=== PATIENT | female | born 1970 | race Hispanic/Latino ===

== ENCOUNTER 2018-04-15 05:04 | Emergency (ER) | payer OTHER ==
[2018-04-15] MEDS ORDERED: METHYLPREDNISOLONE SOD SUCC 125MG/2ML VIAL ONE (05:26)
[2018-04-15] MEDS ORDERED: IPRATROPIUM/ALBUTEROL SULFATE 3 ML SOLUTION IH ONE (05:31)
== END 2018-04-15 06:14 | disposition home or self-care (01) ==
LOC: EDH 05:04
DX: R06.2 Wheezing (principal); R50.9 Fever, unspecified; I10 Essential (primary) hypertension; Z88.8 Allergy status to other drugs, medicaments and biological substances; Z90.49 Acquired absence of other specified parts of digestive tract; Z90.710 Acquired absence of both cervix and uterus
CPT/HCPCS: 94640; 96374; 99284; J2930

== ENCOUNTER 2018-05-15 19:43 | Emergency (ER) | payer OTHER ==
[2018-05-15 20:16] LABS: BASOPHILS % (AUTO) 0.6 % (0.0-5.0); EOSINOPHILS % (AUTO) 1.4 % (0.0-8.0); HEMATOCRIT 36.8 % (36-48); MEAN CORPUSCULAR HEMOGLOBIN 25.6 pg (27.0-33.0); MEAN CORPUSCULAR HGB CONC 32.5 g/dL (32.0-36.0); MEAN CORPUSCULAR VOLUME 78.7 fL (79-99); MONOCYTES % (AUTO) 6.7 % (3.0-13.0); NEUTROPHILS % (AUTO) 63.3 % (40.0-77.0); PLATELET COUNT (AUTO) 248 K/uL (130-400); RED BLOOD CELL COUNT(AUTO) 4.68 MIL/uL (4.00-5.50); RED CELL DISTRIBUTION WIDTH 17.1 % (11.0-15.5); WHITE BLOOD COUNT (AUTO) 6.3 K/uL (4.8-10.8)
[2018-05-15] MEDS ORDERED: ONDANSETRON HCL 4 MG/2 ML VIAL ONE (20:19)
[2018-05-15] MEDS ORDERED: MORPHINE SULFATE 4 MG/1ML SYG ONE (20:20)
[2018-05-15 20:27] LABS: APPEARANCE,URINE Clear (CLEAR); BILIRUBIN,URINE Negative (NEGATIVE); COLOR,URINE Yellow (YELLOW); GLUCOSE, URINE (UA) Negative (NEGATIVE); KETONES,URINE Trace mg/dL (NEGATIVE); LEUKOCYTE ESTERASE ,URINE Negative (NEGATIVE); NITRATE,URINE Negative (NEGATIVE); OCCULT BLOOD,URINE Negative (NEGATIVE); PROTEIN,URINE Trace (NEGATIVE)
[2018-05-15 20:29] LABS: CARBON DIOXIDE 30 mmol/L (21-32); CHLORIDE 102 mmol/L (101-111); CREATININE 0.9 mg/dL (0.5-1.5); GLOMERULAR FILTR. RATE CALC 72 mL/min (>60); GLUCOSE,RANDOM 97 mg/dL (70-105); POTASSIUM 3.4 mmol/L (3.5-5.1); SODIUM SERUM 141 mmol/L (136-145); UREA NITROGEN, BLOOD 13 mg/dL (7-18)
[2018-05-15 20:33] LABS: INR 0.95 (0.85-1.15); PARTIAL THROMBOPLASTIN TIME 27.9 SEC (26.3-35.5)
[2018-05-15 20:37] LABS: BACTERIA,URINE Few /HPF (None Seen); RBC,URINE None Seen /HPF (0-1)
[2018-05-15 20:38] LABS: WBC,URINE 0-1 /HPF (0-1)
[2018-05-15 20:44] LABS: ALANINE AMINOTRANSFERASE 27 U/L (12-78); ALBUMIN 3.6 g/dL (3.5-5.0); ASPARTATE AMINOTRANSFERASE 22 U/L (10-37); BILIRUBIN,TOTAL 0.4 mg/dL (0.2-1.0); CREATINE KINASE MB < 0.5 ng/mL (0.5-3.6); CREATINE KINASE, TOTAL 59 U/L (21-232); MYOGLOBIN 41 ng/mL (10-92); TOTAL PROTEIN, SERUM 7.7 g/dL (6.0-8.3); TROPONIN I < 0.04 ng/mL (0.00-0.06)
[2018-05-15] MEDS ORDERED: CLINDAMYCIN 900 MG/D5% WATER 50 ML IV ONE (21:33)
[2018-05-15] MEDS ORDERED: FUROSEMIDE 10 MG/ML 2ML VIAL ONE (22:09)
[2018-05-15] MEDS ORDERED: POTASSIUM CHLORIDE 20 MEQ ERTAB PO ONE (22:09)
[2018-05-15] MEDS ORDERED: FUROSEMIDE 10 MG/ML 4ML VIAL ONE (22:09)
== END 2018-05-15 22:42 | disposition home or self-care (01) ==
LOC: EDH 19:43
DX: L03.116 Cellulitis of left lower limb (principal); R60.0 Localized edema; R50.9 Fever, unspecified; I10 Essential (primary) hypertension; Z88.6 Allergy status to analgesic agent; Z88.1 Allergy status to other antibiotic agents; Z90.49 Acquired absence of other specified parts of digestive tract; Z90.710 Acquired absence of both cervix and uterus; Z98.890 Other specified postprocedural states
CPT/HCPCS: 36415; 71045; 80053; 81001; 82550; 82553; 83605; 83874; 84484; 85025; 85610; 85730; 87040 ×2; 87088; 93005; 93970; 96365; 96374; 96375; 99285; J1940 ×2; J2270; J2405; J3490

== ENCOUNTER 2018-08-10 17:29 | Observation (INO) | payer OTHER ==
[~2018-08-10] VITALS: Ht 170.2 cm; Wt 169.1 kg
[~2018-08-10 17:29] MED LIST: DIAZ10TA4 PO; FURO-151 PO; METO5TAB7 PO
[2018-08-10] MEDS ORDERED: SODIUM CHLORIDE 0.9% 500ML 500 ML IV ONE (18:59)
[2018-08-10] MEDS ORDERED: MORPHINE SULFATE 4 MG/1ML SYG ONE (18:59)
[2018-08-10] MEDS ORDERED: ZOSYN 3.375GM+NS 50ML 50 ML IV ONE (18:59)
[2018-08-10] MEDS ORDERED: ONDANSETRON HCL 4 MG/2 ML VIAL ONE (19:00)
[2018-08-10] MEDS ORDERED: SODIUM CHLORIDE 0.9% 100 ML IV ONE (19:00)
[2018-08-10 19:01] LABS: BASOPHILS % (AUTO) 0.9 % (0.0-5.0); EOSINOPHILS % (AUTO) 2.1 % (0.0-8.0); HEMATOCRIT 34.7 % (36-48); LYMPHOCYTES % (AUTO) 25.4 % (21.0-51.0); MEAN CORPUSCULAR HEMOGLOBIN 26.4 pg (27.0-33.0); MEAN CORPUSCULAR HGB CONC 33.2 g/dL (32.0-36.0); MEAN CORPUSCULAR VOLUME 79.6 fL (79-99); MONOCYTES % (AUTO) 5.9 % (3.0-13.0); NEUTROPHILS % (AUTO) 65.7 % (40.0-77.0); NUCLEATED RED BLOOD CELLS 0.1 % (0.0-0.19); PLATELET COUNT (AUTO) 220 K/uL (130-400); RED BLOOD CELL COUNT(AUTO) 4.36 MIL/uL (4.00-5.50); WHITE BLOOD COUNT (AUTO) 4.2 K/uL (4.8-10.8)
[2018-08-10] MEDS ORDERED: SODIUM CHLORIDE 0.9% 10 ML VIAL IVP PRN (19:15)
[2018-08-10] MEDS ORDERED: VANCOMYCIN PROTOCOL PER PHARMACY IV SCH (19:15)
[2018-08-10 19:17] LABS: ALBUMIN 3.2 g/dL (3.5-5.0); BILIRUBIN,TOTAL 0.4 mg/dL (0.2-1.0); CREATININE 0.9 mg/dL (0.5-1.5); TOTAL PROTEIN, SERUM 7.3 g/dL (6.0-8.3)
[2018-08-10] MEDS ORDERED: ACETAMINOPHEN 325 MG TAB PO PRN (19:30)
[2018-08-10 20:11] LABS: ERYTHROCYTE SEDIMENTATION RATE 53 MM/HR (0-20)
[2018-08-10] MEDS: VANCOMYCIN 1.75 GM in SODIUM CHLORIDE 0.9% 250 ML IV SCH (21:05)
[2018-08-10] MEDS ORDERED: COMPOUND IV REFRIGERATED 1 EACH IVSOLN MISC PRN (21:15)
[2018-08-10] MEDS ORDERED: ACETAMINOPHEN 325 MG TAB ONE (23:05)
[2018-08-11 00:55] VITALS: BP 139/76
[2018-08-11] MEDS ORDERED: FEXO-59 PO (01:46)
[2018-08-11] MEDS ORDERED: FISH1CAP27 PO (01:46)
[2018-08-11] MEDS ORDERED: POTA10TA11 PO (01:46)
[2018-08-11] MEDS ORDERED: MAG1CAPS5 PO (01:46)
[2018-08-11 03:44] LABS: HEMATOCRIT 33.6 % (36-48); MEAN CORPUSCULAR HEMOGLOBIN 26.2 pg (27.0-33.0); MEAN CORPUSCULAR HGB CONC 32.9 g/dL (32.0-36.0); MEAN CORPUSCULAR VOLUME 79.5 fL (79-99); PLATELET COUNT (AUTO) 191 K/uL (130-400); RED BLOOD CELL COUNT(AUTO) 4.23 MIL/uL (4.00-5.50); RED CELL DISTRIBUTION WIDTH 16.9 % (11.0-15.5); WHITE BLOOD COUNT (AUTO) 4.2 K/uL (4.8-10.8)
[2018-08-11 04:02] LABS: BILIRUBIN,TOTAL 0.5 mg/dL (0.2-1.0)
[2018-08-11 04:15] VITALS: BP 126/69
[2018-08-11] MEDS ORDERED: POTASSIUM CHLORIDE 10% ELIXIR 20 MEQ/15 ML UDCUP PO PRN (05:45)
[2018-08-11] MEDS ORDERED: LIDOCAINE HCL-MPF 1% 2ML VIAL IVP PRN (05:45)
[2018-08-11] MEDS ORDERED: POTASSIUM CHLORIDE 20MEQ/100ML 100 ML IV PRN (05:45)
[2018-08-11] MEDS: POTASSIUM CHLORIDE 20 MEQ ERTAB PO PRN ×3 (06:28→17:19)
[2018-08-11] MEDS ORDERED: DIAZEPAM 5 MG TABLET PO PRN (06:30)
[2018-08-11] MEDS ORDERED: HYDROMORPHONE 1 MG/1 ML AMP IVP PRN (06:30)
[2018-08-11 07:45] VITALS: BP 127/78
[2018-08-11] MEDS: MAGNESIUM PO SCH ×2 (08:00→17:00)
[2018-08-11] MEDS: CHOLECALCIFEROL PO SCH ×2 (08:00→17:00)
[2018-08-11] MEDS: POTASSIUM CHLORIDE 20 MEQ ERTAB PO SCH (09:15)
[2018-08-11] MEDS: FUROSEMIDE 40 MG TABLET PO SCH ×2 (09:15→20:06)
[2018-08-11] MEDS: METOLAZONE 2.5 MG TABLET PO SCH (09:15)
[2018-08-11] MEDS: CETIRIZINE HCL 5 MG TABLET PO SCH (09:15)
[2018-08-11] MEDS: ENOXAPARIN SODIUM 40 MG/0.4 ML SYRINGE SQ SCH (09:17)
[2018-08-11] MEDS: LIDOCAINE HCL 5% OINT 36GM TUBE TP SCH ×4 (09:47→21:00)
[2018-08-11] MEDS: VANCOMYCIN 1.75 GM in SODIUM CHLORIDE 0.9% 250 ML IV SCH ×2 (10:16→20:06)
[2018-08-11] MEDS ORDERED: HYDROMORPHONE HCL 2 MG/ML VIAL IVP PRN (10:45)
[2018-08-11] MEDS ORDERED: HYDROMORPHONE 1 MG/1 ML AMP ONE (10:55)
[2018-08-11 12:11] VITALS: BP 132/68
[2018-08-11] MEDS: ZOSYN 3.375GM+NS 50ML 50 ML IV SCH (17:00)
[2018-08-11 17:15] VITALS: BP 116/80
[2018-08-11] MEDS ORDERED: ZOSYN 3.375GM+NS 50ML 50 ML IV SCH (19:00)
[2018-08-11] MEDS: HYDROMORPHONE 1 MG/1 ML AMP IVP PRN (20:07)
[2018-08-11 20:08] VITALS: BP 119/73
[2018-08-12 00:12] VITALS: BP 123/72
[2018-08-12] MEDS: ZOSYN 3.375GM+NS 50ML 50 ML IV SCH ×2 (00:21→08:36)
[2018-08-12] MEDS: HYDROMORPHONE 1 MG/1 ML AMP IVP PRN ×2 (04:03→11:06)
[2018-08-12 04:12] VITALS: BP 132/81
[2018-08-12 07:41] VITALS: BP 127/75
[2018-08-12] MEDS: CHOLECALCIFEROL PO SCH (08:00)
[2018-08-12] MEDS: MAGNESIUM PO SCH (08:00)
[2018-08-12] MEDS: METOLAZONE 2.5 MG TABLET PO SCH (08:32)
[2018-08-12] MEDS: POTASSIUM CHLORIDE 20 MEQ ERTAB PO SCH (08:33)
[2018-08-12] MEDS: CETIRIZINE HCL 5 MG TABLET PO SCH (08:33)
[2018-08-12] MEDS: FUROSEMIDE 40 MG TABLET PO SCH (08:34)
[2018-08-12] MEDS: LIDOCAINE HCL 5% OINT 36GM TUBE TP SCH ×2 (08:34→12:49)
[2018-08-12] MEDS: ENOXAPARIN SODIUM 40 MG/0.4 ML SYRINGE SQ SCH (08:34)
[2018-08-12] MEDS: VANCOMYCIN 1.75 GM in SODIUM CHLORIDE 0.9% 250 ML IV SCH (08:35)
[2018-08-12] MEDS ORDERED: CEPH500C2 PO (12:02)
[2018-08-12 12:19] VITALS: BP 135/88
== END 2018-08-12 15:10 | disposition home or self-care (01) ==
LOC: EDH 17:29 → EDHIP 18:48 → 3AH 08-11 00:29
PROVIDERS: ADMIT Internal Medicine; ATTEND Internal Medicine
DX: L03.116 Cellulitis of left lower limb (principal); E66.01 Morbid (severe) obesity due to excess calories; E11.9 Type 2 diabetes mellitus without complications; E78.5 Hyperlipidemia, unspecified; G47.30 Sleep apnea, unspecified; I10 Essential (primary) hypertension; I89.0 Lymphedema, not elsewhere classified; J44.9 Chronic obstructive pulmonary disease, unspecified; Z23 Encounter for immunization
CPT/HCPCS: 36415 ×2; 80053 ×2; 83605; 85025; 85027; 85651; 87040 ×2; 96365; 96366 ×2; 96372 ×2; 96375 ×2; 96376 ×2; 99285; G0008; G0378 ×44; J1170 ×5; J1650 ×2; J2270; J2405; J2543 ×4; J3370 ×2; J7030 ×2; J7040; Q2038

== ENCOUNTER 2018-08-20 13:47 | Inpatient (IN) | payer OTHER ==
[~2018-08-20] VITALS: Ht 170.2 cm; Wt 165.3 kg
[~2018-08-20 13:47] MED LIST changes: +FEXO-59 PO; +FISH1CAP27 PO; +MAG1CAPS5 PO; +POTA10TA11 PO
[2018-08-20] MEDS ORDERED: ONDANSETRON ODT 4 MG TAB ONE (14:27)
[2018-08-20] MEDS ORDERED: HYDROMORPHONE 1 MG/1 ML AMP ONE ×2 (14:27→21:57)
[2018-08-20 14:32] LABS: EOSINOPHILS % (AUTO) 1.1 % (0.0-8.0); HEMATOCRIT 36.4 % (36-48); LYMPHOCYTES % (AUTO) 25.9 % (21.0-51.0); MEAN CORPUSCULAR HEMOGLOBIN 26.4 pg (27.0-33.0); MONOCYTES % (AUTO) 6.5 % (3.0-13.0); NEUTROPHILS % (AUTO) 65.5 % (40.0-77.0); PLATELET COUNT (AUTO) 215 K/uL (130-400); RED BLOOD CELL COUNT(AUTO) 4.55 MIL/uL (4.00-5.50); WHITE BLOOD COUNT (AUTO) 4.7 K/uL (4.8-10.8)
[2018-08-20 14:50] LABS: ALBUMIN 3.3 g/dL (3.5-5.0); BILIRUBIN,TOTAL 0.4 mg/dL (0.2-1.0); CREATININE 0.9 mg/dL (0.5-1.5); TOTAL PROTEIN, SERUM 7.7 g/dL (6.0-8.3)
[2018-08-20 14:53] LABS: POTASSIUM 2.7 mmol/L (3.5-5.1)
[2018-08-20] MEDS ORDERED: POTASSIUM BICARB/CIT AC 25 MEQ TABLET.EFF ONE (15:50)
[2018-08-20] MEDS ORDERED: VANCOMYCIN 1GM+NS 250ML 250 ML IV ONE (16:05)
[2018-08-20] MEDS ORDERED: ZOSYN 3.375GM+NS 50ML 50 ML IV ONE (20:46)
[2018-08-20] MEDS ORDERED: HYDROCODONE/ACETAMINOPHEN 5/325 MG TAB ONE (20:46)
[2018-08-20] MEDS ORDERED: SODIUM CHLORIDE 0.9% 50 ML IV ONE (20:47)
[2018-08-20 22:20] VITALS: BP 145/90
[2018-08-21] VITALS: BP 149/77
[2018-08-21] MEDS: HYDROMORPHONE 1 MG/1 ML AMP IVP PRN ×5 (02:39→23:17)
[2018-08-21 04:00] VITALS: BP 136/92
[2018-08-21] MEDS ORDERED: HYDROCODONE/ACETAMINOPHEN 5/325 MG TAB PO PRN (05:45)
[2018-08-21] MEDS ORDERED: GLUCAGON 1MG KIT 1 MG ML IM PRN (05:45)
[2018-08-21] MEDS ORDERED: PHARMACY COMMUNICATION MISC SCH (05:45)
[2018-08-21] MEDS ORDERED: DEXTROSE 50%-WATER 50 ML DISP.SYRIN IV PRN (05:45)
[2018-08-21] MEDS ORDERED: VANCOMYCIN PROTOCOL PER PHARMACY IV SCH (05:45)
[2018-08-21] MEDS: INSULIN R PO SS1 SQ SCH ×4 (06:42→20:57)
[2018-08-21] MEDS ORDERED: VANCOMYCIN 1.75 GM in SODIUM CHLORIDE 0.9% 250 ML IV SCH (07:15)
[2018-08-21] MEDS ORDERED: COMPOUND IV REFRIGERATED 1 EACH IVSOLN MISC PRN (07:15)
[2018-08-21 08:00] VITALS: BP 142/93
[2018-08-21] MEDS: D3 PO SCH ×2 (08:00→08:56)
[2018-08-21] MEDS: MAG OXIDE PO SCH ×2 (08:00→08:56)
[2018-08-21] MEDS: TURMERIC RT XT PO SCH ×2 (08:00→08:56)
[2018-08-21] MEDS: FEXOFENADINE HCL 180 MG PO SCH (08:10)
[2018-08-21] MEDS: FUROSEMIDE 40 MG TABLET PO SCH ×2 (09:40→21:03)
[2018-08-21] MEDS: METOLAZONE 2.5 MG TABLET PO SCH (09:40)
[2018-08-21] MEDS: POTASSIUM CHLORIDE 20 MEQ ERTAB PO SCH (09:41)
[2018-08-21] MEDS: ENOXAPARIN SODIUM 40 MG/0.4 ML SYRINGE SQ SCH (09:41)
[2018-08-21 11:00] VITALS: BP 140/87
[2018-08-21] MEDS: CEFAZOLIN SODIUM 1 GM VIAL IVP SCH ×2 (12:03→21:09)
[2018-08-21] MEDS: VANCOMYCIN 1.25 GM in SODIUM CHLORIDE 0.9% 250 ML IV SCH ×2 (12:45→22:41)
[2018-08-21 16:00] VITALS: BP 155/86
[2018-08-21 20:00] VITALS: BP 150/88
[2018-08-21] MEDS ORDERED: LIDOCAINE HCL-MPF 1% 2ML VIAL IVP PRN ×2 (20:00)
[2018-08-21] MEDS ORDERED: POTASSIUM CHLORIDE 10% ELIXIR 20 MEQ/15 ML UDCUP PO PRN (20:00)
[2018-08-21] MEDS ORDERED: POTASSIUM CHLORIDE 20MEQ/100ML 100 ML IV PRN ×2 (20:00)
[2018-08-21] MEDS: POTASSIUM CHLORIDE 20 MEQ ERTAB PO PRN ×3 (21:16→23:17)
[2018-08-22] VITALS (7 sets, daily range): BP systolic 112–158; BP diastolic 58–86
[2018-08-22] MEDS: DIAZEPAM 5 MG TABLET PO PRN (00:55)
[2018-08-22] MEDS: CEFAZOLIN SODIUM 1 GM VIAL IVP SCH ×3 (04:08→21:10)
[2018-08-22] MEDS: HYDROMORPHONE 1 MG/1 ML AMP IVP PRN ×4 (04:12→21:18)
[2018-08-22 04:18] LABS: HEMATOCRIT 34.3 % (36-48); MEAN CORPUSCULAR HEMOGLOBIN 26.6 pg (27.0-33.0); MEAN CORPUSCULAR HGB CONC 33.7 g/dL (32.0-36.0); MEAN CORPUSCULAR VOLUME 78.8 fL (79-99); PLATELET COUNT (AUTO) 215 K/uL (130-400); RED BLOOD CELL COUNT(AUTO) 4.35 MIL/uL (4.00-5.50); WHITE BLOOD COUNT (AUTO) 4.5 K/uL (4.8-10.8)
[2018-08-22 04:35] LABS: CREATININE 1.1 mg/dL (0.5-1.5); MAGNESIUM 1.8 mg/dL (1.80-2.40); POTASSIUM 3.4 mmol/L (3.5-5.1)
[2018-08-22] MEDS: INSULIN R PO SS1 SQ SCH (06:39)
[2018-08-22] MEDS: POTASSIUM CHLORIDE 20 MEQ ERTAB PO PRN (06:41)
[2018-08-22] MEDS: VANCOMYCIN 1.25 GM in SODIUM CHLORIDE 0.9% 250 ML IV SCH ×2 (06:42→15:00)
[2018-08-22] MEDS: D3 PO SCH ×2 (08:00→09:47)
[2018-08-22] MEDS: MAG OXIDE PO SCH ×2 (08:00→09:47)
[2018-08-22] MEDS: TURMERIC RT XT PO SCH ×2 (08:00→09:47)
[2018-08-22] MEDS: FEXOFENADINE HCL 180 MG PO SCH (08:28)
[2018-08-22] MEDS: FUROSEMIDE 40 MG TABLET PO SCH ×2 (09:45→21:10)
[2018-08-22] MEDS: ENOXAPARIN SODIUM 40 MG/0.4 ML SYRINGE SQ SCH (09:45)
[2018-08-22] MEDS: POTASSIUM CHLORIDE 20 MEQ ERTAB PO SCH (09:46)
[2018-08-22] MEDS: METOLAZONE 2.5 MG TABLET PO SCH (09:50)
[2018-08-23] MEDS: HYDROMORPHONE 1 MG/1 ML AMP IVP PRN ×2 (03:20→09:02)
[2018-08-23 04:00] VITALS: BP 104/61
[2018-08-23] MEDS: CEFAZOLIN SODIUM 1 GM VIAL IVP SCH ×3 (05:55→21:52)
[2018-08-23] MEDS: VANCOMYCIN 1GM+NS 250ML 250 ML IV SCH ×3 (05:56→21:53)
[2018-08-23] MEDS: HYDROCODONE/ACETAMINOPHEN 5/325 MG TAB PO PRN ×3 (06:16→16:22)
[2018-08-23 08:00] VITALS: BP 119/75
[2018-08-23] MEDS: MAG OXIDE PO SCH ×2 (08:00→14:47)
[2018-08-23] MEDS: TURMERIC RT XT PO SCH ×2 (08:00→14:47)
[2018-08-23] MEDS: D3 PO SCH ×2 (08:00→14:47)
[2018-08-23] MEDS: FEXOFENADINE HCL 180 MG PO SCH (08:31)
[2018-08-23] MEDS: METOLAZONE 2.5 MG TABLET PO SCH (09:01)
[2018-08-23] MEDS: FUROSEMIDE 40 MG TABLET PO SCH ×2 (09:01→21:52)
[2018-08-23] MEDS: POTASSIUM CHLORIDE 20 MEQ ERTAB PO SCH (09:01)
[2018-08-23] MEDS: ENOXAPARIN SODIUM 40 MG/0.4 ML SYRINGE SQ SCH (09:04)
[2018-08-23 11:00] VITALS: BP 131/74
[2018-08-23] MEDS ORDERED: HYDROMORPHONE 1 MG/1 ML AMP IVP PRN (11:00)
[2018-08-23 16:00] VITALS: BP 121/86
[2018-08-23 19:47] VITALS: BP 97/67
[2018-08-23 23:53] VITALS: BP 134/78
[2018-08-24] MEDS: DIAZEPAM 5 MG TABLET PO PRN ×2 (00:41→13:15)
[2018-08-24 05:11] VITALS: BP 139/90
[2018-08-24] MEDS: VANCOMYCIN 1GM+NS 250ML 250 ML IV SCH (05:38)
[2018-08-24] MEDS: CEFAZOLIN SODIUM 1 GM VIAL IVP SCH ×3 (05:38→20:06)
[2018-08-24] MEDS: HYDROCODONE/ACETAMINOPHEN 5/325 MG TAB PO PRN ×4 (05:56→20:09)
[2018-08-24] MEDS: D3 PO SCH ×2 (08:00→17:00)
[2018-08-24] MEDS: MAG OXIDE PO SCH ×2 (08:00→17:00)
[2018-08-24] MEDS: TURMERIC RT XT PO SCH ×2 (08:00→17:00)
[2018-08-24 08:09] VITALS: BP 143/76
[2018-08-24] MEDS: FEXOFENADINE HCL 180 MG PO SCH (09:00)
[2018-08-24] MEDS: POTASSIUM CHLORIDE 20 MEQ ERTAB PO SCH (09:32)
[2018-08-24] MEDS: METOLAZONE 2.5 MG TABLET PO SCH (09:32)
[2018-08-24] MEDS: ENOXAPARIN SODIUM 40 MG/0.4 ML SYRINGE SQ SCH (09:33)
[2018-08-24] MEDS: FUROSEMIDE 40 MG TABLET PO SCH ×2 (09:33→20:06)
[2018-08-24 11:42] VITALS: BP 145/97
[2018-08-24] MEDS ORDERED: COMPOUND IV REFRIGERATED 1 EACH IVSOLN MISC PRN (14:30)
[2018-08-24] MEDS: VANCOMYCIN 1.25 GM in SODIUM CHLORIDE 0.9% 250 ML IV SCH (15:52)
[2018-08-24 16:01] VITALS: BP 126/79
[2018-08-24 20:28] VITALS: BP 137/67
[2018-08-25 00:24] VITALS: BP 127/76
[2018-08-25] MEDS: VANCOMYCIN 1.25 GM in SODIUM CHLORIDE 0.9% 250 ML IV SCH (02:58)
[2018-08-25] MEDS: CEFAZOLIN SODIUM 1 GM VIAL IVP SCH ×2 (04:00→14:44)
[2018-08-25 04:24] VITALS: BP 121/63
[2018-08-25] MEDS: HYDROCODONE/ACETAMINOPHEN 5/325 MG TAB PO PRN ×2 (06:28→10:40)
[2018-08-25] MEDS: TURMERIC RT XT PO SCH (08:00)
[2018-08-25] MEDS: D3 PO SCH (08:00)
[2018-08-25] MEDS: MAG OXIDE PO SCH (08:00)
[2018-08-25 08:06] VITALS: BP 116/59
[2018-08-25] MEDS: FEXOFENADINE HCL 180 MG PO SCH (09:00)
[2018-08-25] MEDS: METOLAZONE 2.5 MG TABLET PO SCH (10:38)
[2018-08-25] MEDS: FUROSEMIDE 40 MG TABLET PO SCH (10:39)
[2018-08-25] MEDS: ENOXAPARIN SODIUM 40 MG/0.4 ML SYRINGE SQ SCH (10:42)
[2018-08-25 11:26] VITALS: BP 122/64
[2018-08-25] MEDS: POTASSIUM CHLORIDE 20 MEQ ERTAB PO SCH (11:46)
[2018-08-25] MEDS: POTASSIUM CHLORIDE 20 MEQ ERTAB PO PRN (14:44)
== END 2018-08-25 15:15 | disposition home or self-care (01) | DRG 383 ==
LOC: EDH 13:47 → EDHIP 17:05 → OBSVTOIN 17:05 → 4CH 22:06 → 4BH 08-23 00:41
PROVIDERS: ADMIT Internal Medicine Critical Care Medicine; ATTEND Internal Medicine Critical Care Medicine
DX: L03.116 Cellulitis of left lower limb (principal); I27.81 Cor pulmonale (chronic); E66.01 Morbid (severe) obesity due to excess calories; F11.20 Opioid dependence, uncomplicated; Z68.43 Body mass index [BMI] 50.0-59.9, adult; G47.33 Obstructive sleep apnea (adult) (pediatric); F41.8 Other specified anxiety disorders; Z76.5 Malingerer [conscious simulation]; E11.9 Type 2 diabetes mellitus without complications; E87.6 Hypokalemia; L03.115 Cellulitis of right lower limb
CPT/HCPCS: 36415; 80048; 80053; 80202; 82948; 83605; 83735; 84100; 84132; 85025; 85027; 85651; 87040; 93970; J0690; J1170; J1650; J2543; J3370; J7030

== ENCOUNTER 2018-11-13 20:46 | Emergency (ER) | payer OTHER ==
[2018-11-13 21:52] LABS: APPEARANCE,URINE Clear (CLEAR); BILIRUBIN,URINE Negative (NEGATIVE); COLOR,URINE Yellow (YELLOW); GLUCOSE, URINE (UA) Negative (NEGATIVE); KETONES,URINE Trace mg/dL (NEGATIVE); LEUKOCYTE ESTERASE ,URINE Negative (NEGATIVE); NITRATE,URINE Negative (NEGATIVE); OCCULT BLOOD,URINE Negative (NEGATIVE); PROTEIN,URINE Trace (NEGATIVE)
[2018-11-13 21:57] LABS: BASOPHILS % (AUTO) 0.9 % (0.0-5.0); EOSINOPHILS % (AUTO) 1.7 % (0.0-8.0); HEMATOCRIT 35.6 % (36-48); LYMPHOCYTES % (AUTO) 27.9 % (21.0-51.0); MEAN CORPUSCULAR HEMOGLOBIN 25.7 pg (27.0-33.0); MEAN CORPUSCULAR HGB CONC 32.4 g/dL (32.0-36.0); MEAN CORPUSCULAR VOLUME 79.1 fL (79-99); MONOCYTES % (AUTO) 6.3 % (3.0-13.0); NEUTROPHILS % (AUTO) 63.2 % (40.0-77.0); NUCLEATED RED BLOOD CELLS 0.1 % (0.0-0.19); PLATELET COUNT (AUTO) 198 K/uL (130-400); RED BLOOD CELL COUNT(AUTO) 4.51 MIL/uL (4.00-5.50); RED CELL DISTRIBUTION WIDTH 17.4 % (11.0-15.5); WHITE BLOOD COUNT (AUTO) 5.1 K/uL (4.8-10.8)
[2018-11-13] MEDS ORDERED: ACETAMINOPHEN EXTRA STRENGTH 500 MG TABLET ONE (22:01)
[2018-11-13 22:10] LABS: BACTERIA,URINE Few /HPF (None Seen); MUCUS,URINE Many LPF (None Seen); RBC,URINE None Seen /HPF (0-1); WBC,URINE None Seen /HPF (0-1)
[2018-11-13 22:11] LABS: POTASSIUM 3.3 mmol/L (3.5-5.1)
[2018-11-13 22:15] LABS: ALBUMIN 3.6 g/dL (3.5-5.0); BILIRUBIN,TOTAL 0.5 mg/dL (0.2-1.0); CRP QUANTITATIVE 3.6 mg/L (0.00-9.0); TOTAL PROTEIN, SERUM 7.7 g/dL (6.0-8.3)
[2018-11-13 23:02] LABS: ERYTHROCYTE SEDIMENTATION RATE 47 MM/HR (0-20)
[2018-11-13] MEDS ORDERED: ACETAMINOPHEN 325 MG TAB ONE (23:03)
== END 2018-11-13 23:42 | disposition home or self-care (01) ==
LOC: EDH 20:46
DX: R60.0 Localized edema (principal); M79.662 Pain in left lower leg; I10 Essential (primary) hypertension; Z90.49 Acquired absence of other specified parts of digestive tract; Z90.710 Acquired absence of both cervix and uterus; Z88.1 Allergy status to other antibiotic agents; Z88.6 Allergy status to analgesic agent
CPT/HCPCS: 36415; 71045; 80053; 81001; 82550; 84484; 85025; 85651; 86140; 93005; 93971

== ENCOUNTER 2018-11-22 16:48 | Emergency (ER) | payer OTHER ==
[2018-11-22] MEDS ORDERED: ONDANSETRON HCL 4 MG/2 ML VIAL ONE (17:30)
[2018-11-22] MEDS ORDERED: SODIUM CHLORIDE 0.9% 1000ML 1,000 ML IV ONE (17:30)
[2018-11-22 17:32] LABS: APPEARANCE,URINE Clear (CLEAR); BILIRUBIN,URINE Negative (NEGATIVE); COLOR,URINE Yellow (YELLOW); GLUCOSE, URINE (UA) Negative (NEGATIVE); KETONES,URINE Negative (NEGATIVE); LEUKOCYTE ESTERASE ,URINE Negative (NEGATIVE); NITRATE,URINE Negative (NEGATIVE); OCCULT BLOOD,URINE Negative (NEGATIVE); PH,URINE 6.5 (5.0-8.0); PROTEIN,URINE Negative (NEGATIVE); UROBILINOGEN,URINE 0.2 mg/dL (0.2-1.0)
[2018-11-22 17:33] LABS: BASOPHILS % (AUTO) 0.6 % (0.0-5.0); EOSINOPHILS % (AUTO) 1.4 % (0.0-8.0); HEMATOCRIT 36.5 % (36-48); LYMPHOCYTES % (AUTO) 22.6 % (21.0-51.0); MEAN CORPUSCULAR HEMOGLOBIN 26.4 pg (27.0-33.0); MEAN CORPUSCULAR HGB CONC 33.2 g/dL (32.0-36.0); MEAN CORPUSCULAR VOLUME 79.7 fL (79-99); MONOCYTES % (AUTO) 6.8 % (3.0-13.0); NEUTROPHILS % (AUTO) 68.6 % (40.0-77.0); NUCLEATED RED BLOOD CELLS 0.1 % (0.0-0.19); PLATELET COUNT (AUTO) 234 K/uL (130-400); RED BLOOD CELL COUNT(AUTO) 4.58 MIL/uL (4.00-5.50); RED CELL DISTRIBUTION WIDTH 17.3 % (11.0-15.5); WHITE BLOOD COUNT (AUTO) 4.4 K/uL (4.8-10.8)
[2018-11-22 17:35] LABS: HCG,QUAL RESULT NEGATIVE (NEGATIVE)
[2018-11-22 17:48] LABS: CREATININE 0.8 mg/dL (0.5-1.5); POTASSIUM 3.6 mmol/L (3.5-5.1)
[2018-11-22 17:52] LABS: ALBUMIN 3.6 g/dL (3.5-5.0); BILIRUBIN,TOTAL 0.5 mg/dL (0.2-1.0); TOTAL PROTEIN, SERUM 7.8 g/dL (6.0-8.3)
[2018-11-22] MEDS ORDERED: TRAMADOL HCL 50 MG TABLET ONE (18:03)
== END 2018-11-22 19:34 | disposition home or self-care (01) ==
LOC: EDH 16:48
DX: R10.32 Left lower quadrant pain (principal); R11.0 Nausea; I10 Essential (primary) hypertension; Z90.710 Acquired absence of both cervix and uterus; Z88.1 Allergy status to other antibiotic agents; Z88.6 Allergy status to analgesic agent
CPT/HCPCS: 36415; 74176; 80053; 81003; 81025; 83690; 85025; 96374; 99284; J2405; J7030

== ENCOUNTER 2019-03-04 13:02 | Observation (INO) | payer OTHER ==
[~2019-03-04] VITALS: Ht 170.2 cm; Wt 166.2 kg
[~2019-03-04 13:02] MED LIST changes: -DIAZ10TA4 PO; -FEXO-59 PO; -FISH1CAP27 PO; +HYDR-4068 PO; -MAG1CAPS5 PO; +OMEG-75 PO
[2019-03-04 14:46] LABS: BASOPHILS % (AUTO) 0.5 % (0.0-5.0); EOSINOPHILS % (AUTO) 1.4 % (0.0-8.0); HEMATOCRIT 35.9 % (36-48); LYMPHOCYTES % (AUTO) 20.9 % (21.0-51.0); MEAN CORPUSCULAR VOLUME 79.4 fL (79-99); MONOCYTES % (AUTO) 7.7 % (3.0-13.0); NEUTROPHILS % (AUTO) 69.5 % (40.0-77.0); NUCLEATED RED BLOOD CELLS 0.1 % (0.0-0.19); PLATELET COUNT (AUTO) 187 K/uL (130-400); RED BLOOD CELL COUNT(AUTO) 4.53 MIL/uL (4.00-5.50); RED CELL DISTRIBUTION WIDTH 16.1 % (11.0-15.5); WHITE BLOOD COUNT (AUTO) 3.9 K/uL (4.8-10.8)
[2019-03-04 14:56] LABS: CREATININE 0.9 mg/dL (0.5-1.5); POTASSIUM 3.5 mmol/L (3.5-5.1)
[2019-03-04 15:02] LABS: ALBUMIN 3.5 g/dL (3.5-5.0); BILIRUBIN,TOTAL 0.3 mg/dL (0.2-1.0); TOTAL PROTEIN, SERUM 7.6 g/dL (6.0-8.3)
[2019-03-04] MEDS ORDERED: ONDANSETRON HCL 4 MG/2 ML VIAL ONE (15:12)
[2019-03-04] MEDS ORDERED: MORPHINE SULFATE 4 MG/1ML SYG ONE ×3 (15:12→20:26)
[2019-03-04 15:52] LABS: ERYTHROCYTE SEDIMENTATION RATE 48 MM/HR (0-20)
[2019-03-04] MEDS ORDERED: VANCOMYCIN 1GM+NS 250ML 250 ML IV ONE (16:40)
[2019-03-04] MEDS ORDERED: DiphenhydrAMINE HCL 50 MG/ML VIAL ONE (17:00)
[2019-03-04] MEDS ORDERED: GUAIFENESIN-DM 200/20 MG 10 ML PO PRN (17:45)
[2019-03-04] MEDS ORDERED: ACETAMINOPHEN 325 MG TAB PO PRN ×2 (17:45→23:30)
[2019-03-04] MEDS ORDERED: VANCOMYCIN PROTOCOL PER PHARMACY IV PRN (17:45)
[2019-03-04] MEDS ORDERED: DiphenhydrAMINE HCL 50 MG/ML VIAL IV PRN (17:45)
[2019-03-04] MEDS ORDERED: LACTULOSE 20 GM/30 ML UDCUP PO PRN (17:45)
[2019-03-04] MEDS ORDERED: ONDANSETRON HCL 4 MG/2 ML VIAL IV PRN (17:45)
[2019-03-04] MEDS ORDERED: ZOSYN 3.375GM+NS 50ML 50 ML IV ONE (20:42)
[2019-03-04] MEDS: ZOSYN 3.375GM+NS 50ML 50 ML IV SCH (21:00)
[2019-03-04 22:00] VITALS: BP 146/94
--- NOTE | 2019-03-04 22:15 | NUR ---
ADMIT PT ADMITTED TO ROOM 312,AAOX3. ASSESSMENT DONE, PLEASE REFER TO CHART. CONTINUED IV ZOSYN FROM ER, PLACED IN IV PUMP. PT REQUESTED FOR FOOD AND PROVIDED JUICE,PEANUT BUTTER AND CRACKERS. ADMISSION CARED DONE. ADMISSION DATA BASE COMPLETED. LEAD SOFTWARE ENGINEER IN AND BLE SONOGRAM DONE. IN FOR MORE CARE AND MANAGEMENT. Addendum: 03/04/19 at 5404 by ADONIS LOVE RN RN Amended: Links added.
[2019-03-04] MEDS ORDERED: LISI40TA4 PO (22:36)
[2019-03-04] MEDS ORDERED: AMLO5TAB9 PO (22:36)
[2019-03-04] MEDS ORDERED: OMEP40CA37 PO (22:36)
[2019-03-04] MEDS ORDERED: ZOLP10TA2 PO (22:36)
[2019-03-04] MEDS ORDERED: COMPOUND IV REFRIGERATED 1 EACH IVSOLN MISC PRN (23:45)
[2019-03-05] MEDS: MORPHINE SULFATE 2 MG/ML 1ML SYG IVP PRN ×5 (01:00→20:47)
--- NOTE | 2019-03-05 02:00 | NUR ---
ROUNDS PT RESTING WELL. NO DISTRESS NOTED. KEPT UNDISTURBED FOR NOW. WILL MONITOR PT.
[2019-03-05 03:10] VITALS: BP 99/57
[2019-03-05 05:00] LABS: HEMATOCRIT 30.7 % (36-48); MEAN CORPUSCULAR VOLUME 78.9 fL (79-99); PLATELET COUNT (AUTO) 182 K/uL (130-400); RED BLOOD CELL COUNT(AUTO) 3.89 MIL/uL (4.00-5.50); RED CELL DISTRIBUTION WIDTH 16.2 % (11.0-15.5); WHITE BLOOD COUNT (AUTO) 4.8 K/uL (4.8-10.8)
[2019-03-05] MEDS: ZOSYN 3.375GM+NS 50ML 50 ML IV SCH ×3 (05:10→20:18)
--- NOTE | 2019-03-05 05:10 | NUR ---
PAIN PT CALLS FOR PAIN MEDICATION. MEDICATED WITH MORPHINE IV. HUNG ZOSYN IV. SECOND PIV INSERTED G20 TO LFA FOR ANTIBIOTIC INFUSION. KEPT COMFORTABLE IN BED. WILL RE-ASSESS PT.
[2019-03-05 05:26] LABS: CREATININE 1.2 mg/dL (0.5-1.5)
[2019-03-05] MEDS ORDERED: VANCOMYCIN 1.5 GM in SODIUM CHLORIDE 0.9% 250 ML IV SCH (06:30)
[2019-03-05 08:00] VITALS: BP 122/58
[2019-03-05] MEDS: PANTOPRAZOLE SODIUM 40 MG TABLET.DR PO SCH (09:17)
[2019-03-05] MEDS: VANCOMYCIN 1.5 GM in SODIUM CHLORIDE 0.9% 250 ML IV SCH ×2 (09:23→20:18)
[2019-03-05 11:00] VITALS: BP 147/73
--- NOTE | 2019-03-05 13:00 | NUR ---
HIRAL SERRATO W PATIENT AAOX3, [employer] OF [employer], SELF EMPLOYED [employer], NO DME/HH/PROV SERVICES, DC PLAN IS HOME Addendum: 03/07/19 at 0816 by TIMUR SEO RN CM Amended: Links added.
[2019-03-05 16:00] VITALS: BP 136/82
--- NOTE | 2019-03-05 16:00 | NUR ---
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 SHE STATED SHE WILL FOLLOW UP ON THAT TODAY.
[2019-03-05 19:10] VITALS: BP 117/67
--- NOTE | 2019-03-05 20:10 | NUR ---
MEDS SHIFT ASSESSMENT DONE, PLEASE REFER TO CHART. PT ASKS FOR WHEN HER PAIN MEDICATION IS DUE. INFORMED THAT FOSTER CARE WORKER WILL CHECK AND WILL RE-ASSESS PT WHEN TIME FOR MED. DUE IV ANTIBIOTICS INFUSED. WILL MONITOR PT.
[2019-03-05 23:00] VITALS: BP 135/67
--- NOTE | 2019-03-06 02:00 | NUR ---
ROUNDS PT RESTING WELL,FAIRLY ASLEEP. NO DISTRESS NOTED. KEPT UNDISTURBED FOR NOW. WILL MONITOR PT.
[2019-03-06] MEDS: MORPHINE SULFATE 2 MG/ML 1ML SYG IVP PRN ×4 (02:34→15:17)
[2019-03-06 03:00] VITALS: BP 138/72
[2019-03-06] MEDS: ZOSYN 3.375GM+NS 50ML 50 ML IV SCH ×2 (04:34→13:01)
--- NOTE | 2019-03-06 05:32 | NUR ---
ROUNDS PT FAIRLY ASLEEP WITH RESPIRATIONS EVEN AND UNLABORED. NO NOTED DISTRESS. KEPT UNDISTURBED. FOR MORE CARE.
[2019-03-06 08:00] VITALS: BP 140/87
--- NOTE | 2019-03-06 08:00 | NUR ---
am shift assessment, feeling better,swelling to lower extremities much improved. states able to move around without pain.
[2019-03-06] MEDS: VANCOMYCIN 1.5 GM in SODIUM CHLORIDE 0.9% 250 ML IV SCH (09:00)
--- NOTE | 2019-03-06 10:00 | NUR ---
walking in hallway.
[2019-03-06] MEDS: PANTOPRAZOLE SODIUM 40 MG TABLET.DR PO SCH (10:04)
[2019-03-06 12:00] VITALS: BP 145/74
[2019-03-06 16:00] VITALS: BP 143/79
[2019-03-06] MEDS ORDERED: DOXY100C2 PO (16:26)
--- NOTE | 2019-03-06 18:00 | NUR ---
discharged now using teach back.rx.in hand plus has already been called in to [facility].in [place].will follow up with pcp.verbalized understanding of all inst given. has her vehicle here so will take herself home.
== END 2019-03-06 18:50 | disposition home or self-care (01) ==
LOC: EDH 13:02 → EDHIP 17:39 → 3BH 20:59
PROVIDERS: ADMIT Internal Medicine Pulmonary Disease; ATTEND Internal Medicine Pulmonary Disease
DX: L03.116 Cellulitis of left lower limb (principal); I10 Essential (primary) hypertension; R06.02 Shortness of breath; E66.01 Morbid (severe) obesity due to excess calories; Z90.710 Acquired absence of both cervix and uterus; Z79.899 Other long term (current) drug therapy
CPT/HCPCS: 36415 ×3; 80048; 80053; 80202; 85025; 85027; 85651; 87040; 93970; 96365; 96366 ×3; 96367; 96368; 96375; 96376 ×2; 99284; G0378 ×49; J1200; J2270 ×3; J2405; J2543 ×6; J3370 ×3; J7030 ×2

== ENCOUNTER 2019-09-11 02:01 | Emergency (ER) | payer OTHER ==
[~2019-09-11 02:01] MED LIST changes: +AMLO5TAB9 PO; +DOXY100C2 PO; +LISI40TA4 PO; -METO5TAB7 PO; +OMEP40CA13 PO; +ZOLP10TA2 PO
[2019-09-11] MEDS ORDERED: ONDANSETRON HCL 4 MG/2 ML VIAL ONE (02:30)
[2019-09-11] MEDS ORDERED: MORPHINE SULFATE 4 MG/1ML SYG ONE (02:31)
[2019-09-11 02:38] LABS: BASOPHILS % (AUTO) 0.6 % (0.0-5.0); EOSINOPHILS % (AUTO) 1.1 % (0.0-8.0); HEMATOCRIT 37.8 % (36-48); LYMPHOCYTES % (AUTO) 29.6 % (21.0-51.0); MEAN CORPUSCULAR HEMOGLOBIN 25.5 pg (27.0-33.0); MEAN CORPUSCULAR HGB CONC 32.8 g/dL (32.0-36.0); MEAN CORPUSCULAR VOLUME 77.7 fL (79-99); MONOCYTES % (AUTO) 5.7 % (3.0-13.0); NUCLEATED RED BLOOD CELLS 0.1 % (0.0-0.19); PLATELET COUNT (AUTO) 218 K/uL (130-400); RED BLOOD CELL COUNT(AUTO) 4.87 MIL/uL (4.00-5.50); WHITE BLOOD COUNT (AUTO) 5.5 K/uL (4.8-10.8)
[2019-09-11 02:39] LABS: BILIRUBIN,URINE Negative (NEGATIVE); COLOR,URINE Yellow (YELLOW); GLUCOSE, URINE (UA) Negative (NEGATIVE); KETONES,URINE Negative (NEGATIVE); LEUKOCYTE ESTERASE ,URINE Negative (NEGATIVE); NITRATE,URINE Negative (NEGATIVE); OCCULT BLOOD,URINE Negative (NEGATIVE); PH,URINE 5.5 (5.0-8.0); PROTEIN,URINE Negative (NEGATIVE)
[2019-09-11 02:40] LABS: HCG,QUAL RESULT NEGATIVE (NEGATIVE)
[2019-09-11 02:44] LABS: APPEARANCE,URINE CLEAR (CLEAR)
[2019-09-11 02:46] LABS: AMPHET/METH SCREEN,URINE NEGATIVE (NEGATIVE); BARBITURATE SCREEN, URINE NEGATIVE (NEGATIVE); BENZODIAZEPINES SCREEN,URINE NEGATIVE (NEGATIVE); CANNABINOID SCREEN,URINE NEGATIVE (NEGATIVE); COCAINE SCREEN,URINE NEGATIVE (NEGATIVE); OPIATE SCREEN,URINE NEGATIVE (NEGATIVE); PHENCYCLIDINE SCREEN,URINE NEGATIVE (NEGATIVE)
[2019-09-11 02:52] LABS: CREATININE 1.3 mg/dL (0.5-1.5); POTASSIUM 3.2 mmol/L (3.5-5.1)
[2019-09-11 02:56] LABS: ALBUMIN 3.8 g/dL (3.5-5.0); BILIRUBIN,TOTAL 0.4 mg/dL (0.2-1.0); TOTAL PROTEIN, SERUM 7.9 g/dL (6.0-8.3)
[2019-09-11] MEDS ORDERED: ACETAMINOPHEN EXTRA STRENGTH 500 MG TABLET ONE (04:50)
== END 2019-09-11 04:47 | disposition home or self-care (01) ==
LOC: EDH 02:01
DX: R10.9 Unspecified abdominal pain (principal); R11.2 Nausea with vomiting, unspecified; R19.7 Diarrhea, unspecified; I10 Essential (primary) hypertension; Z90.49 Acquired absence of other specified parts of digestive tract; Z90.710 Acquired absence of both cervix and uterus; Z88.1 Allergy status to other antibiotic agents; Z88.6 Allergy status to analgesic agent
CPT/HCPCS: 36415; 74176; 80053; 80305; 81003; 81025; 83690; 85025; 96374; 96375; 99285; J2270; J2405

== ENCOUNTER 2019-09-20 22:43 | Emergency (ER) | payer OTHER ==
[2019-09-20 23:46] LABS: BILIRUBIN,URINE Negative (NEGATIVE); COLOR,URINE Yellow (YELLOW); GLUCOSE, URINE (UA) Negative (NEGATIVE); KETONES,URINE Negative (NEGATIVE); LEUKOCYTE ESTERASE ,URINE Negative (NEGATIVE); NITRATE,URINE Negative (NEGATIVE); OCCULT BLOOD,URINE Negative (NEGATIVE); PH,URINE 5.5 (5.0-8.0); PROTEIN,URINE Negative (NEGATIVE)
[2019-09-20 23:47] LABS: APPEARANCE,URINE CLEAR (CLEAR)
[2019-09-20 23:49] LABS: BASOPHILS % (AUTO) 0.7 % (0.0-5.0); EOSINOPHILS % (AUTO) 1.5 % (0.0-8.0); HEMATOCRIT 33.3 % (36-48); LYMPHOCYTES % (AUTO) 27.6 % (21.0-51.0); MEAN CORPUSCULAR HEMOGLOBIN 25.4 pg (27.0-33.0); MEAN CORPUSCULAR VOLUME 77.1 fL (79-99); MONOCYTES % (AUTO) 6.9 % (3.0-13.0); NEUTROPHILS % (AUTO) 63.3 % (40.0-77.0); PLATELET COUNT (AUTO) 201 K/uL (130-400); RED BLOOD CELL COUNT(AUTO) 4.32 MIL/uL (4.00-5.50)
[2019-09-20 23:53] LABS: CREATININE 1.1 mg/dL (0.5-1.5); POTASSIUM 3.3 mmol/L (3.5-5.1)
[2019-09-20 23:58] LABS: ALBUMIN 3.4 g/dL (3.5-5.0); BILIRUBIN,TOTAL 0.3 mg/dL (0.2-1.0); TOTAL PROTEIN, SERUM 7.2 g/dL (6.0-8.3)
[2019-09-21 00:14] LABS: B-TYPE NATRIURETIC PEPTIDE 42 pg/mL (0-100)
[2019-09-21 00:23] LABS: INR 0.95 (0.85-1.15); PARTIAL THROMBOPLASTIN TIME 24.6 SEC (26.3-35.5)
[2019-09-21] MEDS ORDERED: CLINDAMYCIN 600 MG/D5% WATER 50 ML IV ONE (01:38)
[2019-09-21] MEDS ORDERED: TRAMADOL HCL 50 MG TABLET ONE (01:38)
== END 2019-09-21 03:05 | disposition home or self-care (01) ==
LOC: EDH 22:43
DX: L03.116 Cellulitis of left lower limb (principal); L03.115 Cellulitis of right lower limb; I10 Essential (primary) hypertension; Z90.49 Acquired absence of other specified parts of digestive tract; Z90.710 Acquired absence of both cervix and uterus; Z88.1 Allergy status to other antibiotic agents; Z88.6 Allergy status to analgesic agent
CPT/HCPCS: 36415; 71045; 80053; 81003; 82550; 83605; 83880; 84484; 85025; 85610; 85651; 85730; 86140; 87040 ×2; 87077; 87186; 93005; 93970; 96365; 99285; J3490

== ENCOUNTER 2019-10-29 16:08 | Emergency (ER) | payer OTHER ==
[2019-10-29] MEDS ORDERED: ONDANSETRON HCL 4 MG/2 ML VIAL ONE (17:15)
[2019-10-29] MEDS ORDERED: DICYCLOMINE HCL 10 MG/ML 2ML AMP IM ONE (17:15)
[2019-10-29 17:16] LABS: APPEARANCE,URINE Clear (CLEAR); BILIRUBIN,URINE Negative (NEGATIVE); COLOR,URINE Yellow (YELLOW); GLUCOSE, URINE (UA) Negative (NEGATIVE); KETONES,URINE Negative (NEGATIVE); LEUKOCYTE ESTERASE ,URINE Negative (NEGATIVE); NITRATE,URINE Negative (NEGATIVE); OCCULT BLOOD,URINE Negative (NEGATIVE); PH,URINE 5.5 (5.0-8.0); PROTEIN,URINE POS 1+ mg/dL (NEGATIVE)
[2019-10-29 17:18] LABS: BASOPHILS % (AUTO) 0.7 % (0.0-5.0); EOSINOPHILS % (AUTO) 0.9 % (0.0-8.0); HEMATOCRIT 36.5 % (36-48); LYMPHOCYTES % (AUTO) 22.4 % (21.0-51.0); MEAN CORPUSCULAR HEMOGLOBIN 24.7 pg (27.0-33.0); MEAN CORPUSCULAR HGB CONC 30.7 g/dL (32.0-36.0); MEAN CORPUSCULAR VOLUME 80.6 fL (79-99); MONOCYTES % (AUTO) 6.5 % (3.0-13.0); NEUTROPHILS % (AUTO) 69.3 % (40.0-77.0); PLATELET COUNT (AUTO) 195 K/uL (130-400); RED BLOOD CELL COUNT(AUTO) 4.53 MIL/uL (4.00-5.50); RED CELL DISTRIBUTION WIDTH 16.3 % (11.0-15.5); WHITE BLOOD COUNT (AUTO) 4.3 K/uL (4.8-10.8)
[2019-10-29 17:24] LABS: AMPHET/METH SCREEN,URINE NEGATIVE (NEGATIVE); BARBITURATE SCREEN, URINE NEGATIVE (NEGATIVE); BENZODIAZEPINES SCREEN,URINE NEGATIVE (NEGATIVE); CANNABINOID SCREEN,URINE NEGATIVE (NEGATIVE); COCAINE SCREEN,URINE NEGATIVE (NEGATIVE); OPIATE SCREEN,URINE NEGATIVE (NEGATIVE); PHENCYCLIDINE SCREEN,URINE NEGATIVE (NEGATIVE)
[2019-10-29 17:33] LABS: BACTERIA,URINE Few /HPF (None Seen); MUCUS,URINE Moderate LPF (None Seen)
[2019-10-29 17:35] LABS: POTASSIUM 3.7 mmol/L (3.5-5.1)
[2019-10-29 17:39] LABS: ALBUMIN 3.7 g/dL (3.5-5.0); BILIRUBIN,TOTAL 0.4 mg/dL (0.2-1.0); TOTAL PROTEIN, SERUM 7.5 g/dL (6.0-8.3)
== END 2019-10-29 18:37 | disposition home or self-care (01) ==
LOC: EDH 16:08
DX: R10.11 Right upper quadrant pain (principal); I10 Essential (primary) hypertension; Z88.1 Allergy status to other antibiotic agents; Z88.6 Allergy status to analgesic agent; Z90.49 Acquired absence of other specified parts of digestive tract; Z90.710 Acquired absence of both cervix and uterus; Z98.890 Other specified postprocedural states
CPT/HCPCS: 36415; 80053; 80305; 81001; 82150; 83690; 85025; 96372; 96374; 99284; J0500; J2405

== ENCOUNTER 2019-11-21 06:01 | Emergency (ER) | payer OTHER ==
[2019-11-21] MEDS ORDERED: ONDANSETRON ODT 4 MG TAB ONE (06:21)
[2019-11-21] MEDS ORDERED: HYDROMORPHONE 1 MG/1 ML AMP ONE (06:22)
[2019-11-21 06:42] LABS: APPEARANCE,URINE Clear (CLEAR); BILIRUBIN,URINE Negative (NEGATIVE); COLOR,URINE Yellow (YELLOW); GLUCOSE, URINE (UA) Negative (NEGATIVE); KETONES,URINE Negative (NEGATIVE); LEUKOCYTE ESTERASE ,URINE Negative (NEGATIVE); NITRATE,URINE Negative (NEGATIVE); OCCULT BLOOD,URINE Negative (NEGATIVE); PH,URINE 5.5 (5.0-8.0); PROTEIN,URINE Trace mg/dL (NEGATIVE)
[2019-11-21 06:49] LABS: HCG,QUAL RESULT NEGATIVE (NEGATIVE)
[2019-11-21 06:57] LABS: BACTERIA,URINE Rare /HPF (None Seen); RBC,URINE 0-1 /HPF (0-1); SQUAMOUS EPITHELIAL CELL,UR Rare /HPF (0-2); WBC,URINE 0-1 /HPF (0-1)
[2019-11-21 07:15] LABS: BASOPHILS % (AUTO) 0.7 % (0.0-5.0); EOSINOPHILS % (AUTO) 1.4 % (0.0-8.0); LYMPHOCYTES % (AUTO) 30.5 % (21.0-51.0); MEAN CORPUSCULAR HEMOGLOBIN 24.8 pg (27.0-33.0); MEAN CORPUSCULAR HGB CONC 30.3 g/dL (32.0-36.0); MEAN CORPUSCULAR VOLUME 81.9 fL (79-99); MONOCYTES % (AUTO) 8.8 % (3.0-13.0); NEUTROPHILS % (AUTO) 58.4 % (40.0-77.0); PLATELET COUNT (AUTO) 186 K/uL (130-400); RED BLOOD CELL COUNT(AUTO) 4.15 MIL/uL (4.00-5.50); RED CELL DISTRIBUTION WIDTH 16.2 % (11.0-15.5); WHITE BLOOD COUNT (AUTO) 4.3 K/uL (4.8-10.8)
[2019-11-21 07:25] LABS: CREATININE 0.9 mg/dL (0.5-1.5); POTASSIUM 3.3 mmol/L (3.5-5.1)
[2019-11-21 07:31] LABS: ALBUMIN 3.4 g/dL (3.5-5.0); BILIRUBIN,TOTAL 0.2 mg/dL (0.2-1.0); TOTAL PROTEIN, SERUM 7.1 g/dL (6.0-8.3)
[2019-11-21] MEDS ORDERED: LIDOCAINE HCL 2% VISCOUS 15 ML UDCUP ONE (08:37)
[2019-11-21] MEDS ORDERED: MAG HYDROX/AL HYDROX/SIMETH ES 30 ML SUSP UDCUP ONE (08:37)
== END 2019-11-21 08:48 | disposition home or self-care (01) ==
LOC: EDH 06:01
DX: R10.32 Left lower quadrant pain (principal); I10 Essential (primary) hypertension; Z88.1 Allergy status to other antibiotic agents; Z88.6 Allergy status to analgesic agent; Z90.710 Acquired absence of both cervix and uterus; Z98.890 Other specified postprocedural states
CPT/HCPCS: 36415; 74176; 80053; 81001; 81025; 83690; 85025; 96372; 99285; J1170

== ENCOUNTER 2019-11-25 13:43 | Emergency (ER) | payer OTHER ==
[2019-11-25] MEDS ORDERED: ACETAMINOPHEN EXTRA STRENGTH 500 MG TABLET ONE (14:25)
[2019-11-25] MEDS ORDERED: TRAMADOL HCL 50 MG TABLET ONE (14:33)
[2019-11-25] MEDS ORDERED: CLINDAMYCIN 600 MG/D5% WATER 50 ML IV ONE (14:42)
[2019-11-25 14:49] LABS: BASOPHILS % (AUTO) 0.7 % (0.0-5.0); EOSINOPHILS % (AUTO) 1.1 % (0.0-8.0); HEMATOCRIT 31.7 % (36-48); LYMPHOCYTES % (AUTO) 23.3 % (21.0-51.0); MEAN CORPUSCULAR HEMOGLOBIN 24.7 pg (27.0-33.0); MEAN CORPUSCULAR HGB CONC 30.6 g/dL (32.0-36.0); MEAN CORPUSCULAR VOLUME 80.9 fL (79-99); MONOCYTES % (AUTO) 6.8 % (3.0-13.0); NEUTROPHILS % (AUTO) 67.6 % (40.0-77.0); PLATELET COUNT (AUTO) 185 K/uL (130-400); RED BLOOD CELL COUNT(AUTO) 3.92 MIL/uL (4.00-5.50); RED CELL DISTRIBUTION WIDTH 15.9 % (11.0-15.5); WHITE BLOOD COUNT (AUTO) 4.4 K/uL (4.8-10.8)
[2019-11-25 15:02] LABS: POTASSIUM 3.6 mmol/L (3.5-5.1)
[2019-11-25 15:07] LABS: ALBUMIN 3.4 g/dL (3.5-5.0); BILIRUBIN,TOTAL 0.4 mg/dL (0.2-1.0); TOTAL PROTEIN, SERUM 7.1 g/dL (6.0-8.3)
== END 2019-11-25 16:19 | disposition home or self-care (01) ==
LOC: EDH 13:43
DX: L03.116 Cellulitis of left lower limb (principal); I10 Essential (primary) hypertension; Z90.49 Acquired absence of other specified parts of digestive tract; Z98.890 Other specified postprocedural states; Z88.1 Allergy status to other antibiotic agents; Z88.6 Allergy status to analgesic agent
CPT/HCPCS: 36415; 80053; 83605; 85025; 87040; 93971; 96365; 99285; J3490

== ENCOUNTER 2020-02-12 13:05 | Emergency (ER) | payer OTHER ==
[2020-02-12 13:50] LABS: APPEARANCE,URINE Clear (CLEAR); BASOPHILS % (AUTO) 0.5 % (0.0-5.0); BILIRUBIN,URINE Negative (NEGATIVE); COLOR,URINE Yellow (YELLOW); EOSINOPHILS % (AUTO) 1.5 % (0.0-8.0); GLUCOSE, URINE (UA) Negative (NEGATIVE); HEMATOCRIT 37.1 % (36-48); KETONES,URINE Negative (NEGATIVE); LEUKOCYTE ESTERASE ,URINE Negative (NEGATIVE); LYMPHOCYTES % (AUTO) 23.5 % (21.0-51.0); MEAN CORPUSCULAR HEMOGLOBIN 23.1 pg (27.0-33.0); MEAN CORPUSCULAR HGB CONC 29.9 g/dL (32.0-36.0); MEAN CORPUSCULAR VOLUME 77.3 fL (79-99); MONOCYTES % (AUTO) 7.7 % (3.0-13.0); NEUTROPHILS % (AUTO) 66.6 % (40.0-77.0); NITRATE,URINE Negative (NEGATIVE); OCCULT BLOOD,URINE Negative (NEGATIVE); PH,URINE 6.5 (5.0-8.0); PLATELET COUNT (AUTO) 176 K/uL (130-400); PROTEIN,URINE Negative (NEGATIVE); RED CELL DISTRIBUTION WIDTH 17.1 % (11.0-15.5); UROBILINOGEN,URINE 0.2 mg/dL (0.2-1.0)
[2020-02-12] MEDS ORDERED: ONDANSETRON HCL 4 MG/2 ML VIAL ONE (14:01)
[2020-02-12] MEDS ORDERED: MORPHINE SULFATE 2 MG/ML 1ML SYG ONE ×2 (14:01→16:34)
[2020-02-12] MEDS ORDERED: SODIUM CHLORIDE 0.9% 1000ML 1,000 ML IV ONE (14:04)
[2020-02-12 14:10] LABS: CREATININE 1.1 mg/dL (0.5-1.5); POTASSIUM 3.8 mmol/L (3.5-5.1)
[2020-02-12 14:14] LABS: ALBUMIN 3.9 g/dL (3.5-5.0); BILIRUBIN,TOTAL 0.4 mg/dL (0.2-1.0); TOTAL PROTEIN, SERUM 7.9 g/dL (6.0-8.3)
[2020-02-12] MEDS ORDERED: METOCLOPRAMIDE 10 MG/2 ML VIAL ONE (16:34)
== END 2020-02-12 17:01 | disposition home or self-care (01) ==
LOC: EDH 13:05
DX: K29.00 Acute gastritis without bleeding (principal); R10.11 Right upper quadrant pain; K31.84 Gastroparesis; I10 Essential (primary) hypertension; Z90.49 Acquired absence of other specified parts of digestive tract; Z90.710 Acquired absence of both cervix and uterus; Z88.1 Allergy status to other antibiotic agents; Z88.6 Allergy status to analgesic agent
CPT/HCPCS: 36415; 74176; 80053; 81003; 82150; 83690; 84484; 85025; 93005; 96361; 96374; 96375; 96376; 99285; J2405; J2765; J7030

== ENCOUNTER 2020-02-24 17:01 | Emergency (ER) | payer OTHER, MEDICAID ==
[~2020-02-24 17:01] MED LIST changes: +AMLO-257 PO; -AMLO5TAB9 PO
[2020-02-24] MEDS ORDERED: ONDANSETRON HCL 4 MG/2 ML VIAL ONE (17:27)
[2020-02-24] MEDS ORDERED: METOCLOPRAMIDE 10 MG/2 ML VIAL ONE (17:27)
[2020-02-24 17:40] LABS: APPEARANCE,URINE Clear (CLEAR); BILIRUBIN,URINE Negative (NEGATIVE); COLOR,URINE Yellow (YELLOW); GLUCOSE, URINE (UA) Negative (NEGATIVE); KETONES,URINE Negative (NEGATIVE); LEUKOCYTE ESTERASE ,URINE Negative (NEGATIVE); NITRATE,URINE Negative (NEGATIVE); OCCULT BLOOD,URINE Negative (NEGATIVE); PH,URINE 6.5 (5.0-8.0); PROTEIN,URINE Negative (NEGATIVE); UROBILINOGEN,URINE 0.2 mg/dL (0.2-1.0)
[2020-02-24 17:46] LABS: BASOPHILS % (AUTO) 0.5 % (0.0-5.0); EOSINOPHILS % (AUTO) 0.3 % (0.0-8.0); HEMATOCRIT 36.3 % (36-48); LYMPHOCYTES % (AUTO) 29.7 % (21.0-51.0); MEAN CORPUSCULAR HEMOGLOBIN 23.7 pg (27.0-33.0); MEAN CORPUSCULAR HGB CONC 30.6 g/dL (32.0-36.0); MEAN CORPUSCULAR VOLUME 77.6 fL (79-99); MONOCYTES % (AUTO) 8.5 % (3.0-13.0); NEUTROPHILS % (AUTO) 60.3 % (40.0-77.0); PLATELET COUNT (AUTO) 188 K/uL (130-400); RED BLOOD CELL COUNT(AUTO) 4.68 MIL/uL (4.00-5.50); RED CELL DISTRIBUTION WIDTH 17.2 % (11.0-15.5); WHITE BLOOD COUNT (AUTO) 7.5 K/uL (4.8-10.8)
[2020-02-24 18:05] LABS: CREATININE 0.9 mg/dL (0.5-1.5); POTASSIUM 3.2 mmol/L (3.5-5.1)
[2020-02-24 18:10] LABS: ALBUMIN 3.4 g/dL (3.5-5.0); BILIRUBIN,TOTAL 0.2 mg/dL (0.2-1.0); TOTAL PROTEIN, SERUM 7.2 g/dL (6.0-8.3)
== END 2020-02-24 18:17 | disposition home or self-care (01) ==
LOC: EDH 17:01
DX: K29.00 Acute gastritis without bleeding (principal); I10 Essential (primary) hypertension; Z88.6 Allergy status to analgesic agent; Z88.1 Allergy status to other antibiotic agents; Z90.49 Acquired absence of other specified parts of digestive tract; Z90.710 Acquired absence of both cervix and uterus; Z98.890 Other specified postprocedural states
CPT/HCPCS: 36415; 80053; 81003; 82150; 83690; 84484; 85025; 93005; 96361; 96374; 96375; 99284; J2405; J2765

== ENCOUNTER 2020-08-01 02:04 | Emergency (ER) | payer MEDICAID, OTHER ==
[~2020-08-01 02:04] MED LIST changes: -AMLO-257 PO; +AMLO5TAB9 PO
[2020-08-01 02:33] LABS: APPEARANCE,URINE Clear (CLEAR); BILIRUBIN,URINE Negative (NEGATIVE); COLOR,URINE Yellow (YELLOW); GLUCOSE, URINE (UA) Negative (NEGATIVE); KETONES,URINE Trace mg/dL (NEGATIVE); LEUKOCYTE ESTERASE ,URINE Negative (NEGATIVE); NITRATE,URINE Negative (NEGATIVE); OCCULT BLOOD,URINE Negative (NEGATIVE); PROTEIN,URINE Trace mg/dL (NEGATIVE)
[2020-08-01 02:55] LABS: BASOPHILS % (AUTO) 0.8 % (0.0-5.0); EOSINOPHILS % (AUTO) 1.5 % (0.0-8.0); HEMATOCRIT 35.9 % (36-48); LYMPHOCYTES % (AUTO) 31.1 % (21.0-51.0); MEAN CORPUSCULAR HEMOGLOBIN 23.6 pg (27.0-33.0); MEAN CORPUSCULAR HGB CONC 30.1 g/dL (32.0-36.0); MEAN CORPUSCULAR VOLUME 78.4 fL (79-99); MONOCYTES % (AUTO) 7.6 % (3.0-13.0); NEUTROPHILS % (AUTO) 58.8 % (40.0-77.0); PLATELET COUNT (AUTO) 230 K/uL (130-400); RED BLOOD CELL COUNT(AUTO) 4.58 MIL/uL (4.00-5.50); RED CELL DISTRIBUTION WIDTH 18.7 % (11.0-15.5); WHITE BLOOD COUNT (AUTO) 5.3 K/uL (4.8-10.8)
[2020-08-01] MEDS ORDERED: METOCLOPRAMIDE 10 MG/2 ML VIAL ONE (03:00)
[2020-08-01] MEDS ORDERED: ONDANSETRON HCL 4 MG/2 ML VIAL ONE (03:01)
[2020-08-01 03:10] LABS: CREATININE 1.1 mg/dL (0.5-1.5); POTASSIUM 3.2 mmol/L (3.5-5.1)
[2020-08-01 03:14] LABS: ALBUMIN 3.9 g/dL (3.5-5.0); BILIRUBIN,TOTAL 0.3 mg/dL (0.2-1.0); TOTAL PROTEIN, SERUM 7.5 g/dL (6.0-8.3)
[2020-08-01] MEDS ORDERED: DiphenhydrAMINE HCL 50 MG/ML VIAL ONE (04:17)
== END 2020-08-01 04:51 | disposition home or self-care (01) ==
LOC: EDH 02:04
DX: R10.32 Left lower quadrant pain (principal); R11.0 Nausea; I10 Essential (primary) hypertension; Z90.49 Acquired absence of other specified parts of digestive tract; Z90.710 Acquired absence of both cervix and uterus; Z88.6 Allergy status to analgesic agent; Z88.1 Allergy status to other antibiotic agents; Z98.890 Other specified postprocedural states
CPT/HCPCS: 74177; 36415; 80053; 81003; 83690; 84484; 85025; 93005; 96361; 96374; 96375; 99285; J1200; J2405; J2765

== ENCOUNTER 2020-08-27 02:10 | Emergency (ER) | payer OTHER ==
[2020-08-27 03:32] LABS: BASOPHILS % (AUTO) 0.4 % (0.0-5.0); EOSINOPHILS % (AUTO) 1.8 % (0.0-8.0); LYMPHOCYTES % (AUTO) 28.7 % (21.0-51.0); MEAN CORPUSCULAR HGB CONC 30.3 g/dL (32.0-36.0); MEAN CORPUSCULAR VOLUME 79.1 fL (79-99); MONOCYTES % (AUTO) 7.9 % (3.0-13.0); PLATELET COUNT (AUTO) 204 K/uL (130-400); RED CELL DISTRIBUTION WIDTH 18.3 % (11.0-15.5); WHITE BLOOD COUNT (AUTO) 4.6 K/uL (4.8-10.8)
[2020-08-27] MEDS ORDERED: ONDANSETRON HCL 4 MG/2 ML VIAL ONE (03:33)
[2020-08-27] MEDS ORDERED: METOCLOPRAMIDE 10 MG/2 ML VIAL ONE (03:33)
[2020-08-27] MEDS ORDERED: FAMOTIDINE/PF 20 MG/2 ML VIAL IV ONE (03:34)
[2020-08-27] MEDS ORDERED: PANTOPRAZOLE 40 MG/VIAL ONE (03:34)
[2020-08-27] MEDS ORDERED: SODIUM CHLORIDE 0.9% 1000ML 1,000 ML IV ONE (03:35)
[2020-08-27 03:41] LABS: CREATININE 1.1 mg/dL (0.5-1.5); POTASSIUM 3.3 mmol/L (3.5-5.1)
[2020-08-27 03:46] LABS: ALBUMIN 3.5 g/dL (3.5-5.0); BILIRUBIN,TOTAL 0.3 mg/dL (0.2-1.0); INR 0.96 (0.85-1.15); PARTIAL THROMBOPLASTIN TIME 24.9 SEC (26.3-35.5); PROTHROMBIN TIME 10.4 SEC (9.6-11.6)
[2020-08-27] MEDS ORDERED: DiphenhydrAMINE HCL 50 MG/ML VIAL ONE (03:55)
[2020-08-27] MEDS ORDERED: LIDOCAINE HCL 2% VISCOUS 15 ML UDCUP ONE (04:00)
[2020-08-27] MEDS ORDERED: MAG HYDROX/AL HYDROX/SIMETH ES 30 ML SUSP UDCUP ONE (04:00)
== END 2020-08-27 04:50 | disposition home or self-care (01) ==
LOC: EDH 02:10
DX: K29.00 Acute gastritis without bleeding (principal); K21.9 Gastro-esophageal reflux disease without esophagitis; I10 Essential (primary) hypertension; Z90.49 Acquired absence of other specified parts of digestive tract; Z90.710 Acquired absence of both cervix and uterus; Z88.1 Allergy status to other antibiotic agents; Z88.6 Allergy status to analgesic agent
CPT/HCPCS: 36415; 80053; 83690; 85025; 85610; 85730; 96361; 96374; 96375; 99284; C9113; J1200; J2405; J2765; J3490; J7030

== ENCOUNTER 2020-11-22 17:22 | Emergency (ER) | payer OTHER ==
[~2020-11-22 17:22] MED LIST changes: +AMLO-257 PO; -AMLO5TAB9 PO
[2020-11-22] MEDS ORDERED: ONDANSETRON HCL 4 MG/2 ML VIAL ONE (19:30)
[2020-11-22] MEDS ORDERED: MORPHINE SULFATE 4 MG/1ML SYG ONE (19:30)
[2020-11-22] MEDS ORDERED: SODIUM CHLORIDE 0.9% 1000ML 1,000 ML IV ONE (19:31)
[2020-11-22 20:14] LABS: BASOPHILS % (AUTO) 0.4 % (0.0-5.0); EOSINOPHILS % (AUTO) 0.8 % (0.0-8.0); HEMATOCRIT 35.1 % (36-48); LYMPHOCYTES % (AUTO) 22.8 % (21.0-51.0); MEAN CORPUSCULAR HEMOGLOBIN 23.2 pg (27.0-33.0); MEAN CORPUSCULAR HGB CONC 29.9 g/dL (32.0-36.0); MEAN CORPUSCULAR VOLUME 77.7 fL (79-99); MONOCYTES % (AUTO) 8.1 % (3.0-13.0); NEUTROPHILS % (AUTO) 67.7 % (40.0-77.0); PLATELET COUNT (AUTO) 200 K/uL (130-400); RED BLOOD CELL COUNT(AUTO) 4.52 MIL/uL (4.00-5.50); RED CELL DISTRIBUTION WIDTH 17.9 % (11.0-15.5); WHITE BLOOD COUNT (AUTO) 4.8 K/uL (4.8-10.8)
[2020-11-22 20:29] LABS: CREATININE 0.9 mg/dL (0.5-1.5); POTASSIUM 3.7 mmol/L (3.5-5.1)
[2020-11-22 20:34] LABS: ALBUMIN 3.5 g/dL (3.5-5.0); BILIRUBIN,TOTAL 0.2 mg/dL (0.2-1.0); TOTAL PROTEIN, SERUM 7.2 g/dL (6.0-8.3)
[2020-11-22 20:56] LABS: APPEARANCE,URINE Cloudy (CLEAR); BILIRUBIN,URINE Negative (NEGATIVE); COLOR,URINE Yellow (YELLOW); GLUCOSE, URINE (UA) Negative (NEGATIVE); KETONES,URINE Negative (NEGATIVE); LEUKOCYTE ESTERASE ,URINE Trace (NEGATIVE); NITRATE,URINE Negative (NEGATIVE); OCCULT BLOOD,URINE Negative (NEGATIVE); PH,URINE 5.5 (5.0-8.0); PROTEIN,URINE Negative (NEGATIVE); UROBILINOGEN,URINE 0.2 mg/dL (0.2-1.0)
[2020-11-22 21:41] LABS: BACTERIA,URINE Moderate /HPF (None Seen); RBC,URINE 0-1 /HPF (0-1); SQUAMOUS EPITHELIAL CELL,UR Moderate /HPF (0-2)
[2020-11-22] MEDS ORDERED: MORPHINE SULFATE 2 MG/ML 1ML SYG ONE (22:33)
== END 2020-11-22 23:00 | disposition home or self-care (01) ==
LOC: EDH 17:22
DX: N39.0 Urinary tract infection, site not specified (principal); G89.29 Other chronic pain; I10 Essential (primary) hypertension; E11.9 Type 2 diabetes mellitus without complications; Z90.49 Acquired absence of other specified parts of digestive tract; Z90.710 Acquired absence of both cervix and uterus; Z88.1 Allergy status to other antibiotic agents; Z88.6 Allergy status to analgesic agent
CPT/HCPCS: 36415; 74177; 80053; 81001; 83605; 83690; 84484; 85025; 87040 ×2; 87077; 87088; 87186; 93005; 96361; 96374; 96375; 96376; 99285; J2270; J2405; J7030

== ENCOUNTER 2021-03-21 04:42 | Emergency (ER) | payer OTHER ==
[~2021-03-21 04:42] MED LIST changes: -LISI40TA4 PO; +LISI40TA9 PO; +OMEG-189 PO; -OMEG-75 PO
[2021-03-21] MEDS ORDERED: HYDROCODONE/ACETAMINOPHEN 10/325 MG TAB ONE (05:02)
[2021-03-21] MEDS ORDERED: DiphenhydrAMINE HCL 50 MG/ML VIAL ONE (06:15)
[2021-03-21] MEDS ORDERED: PROCHLORPERAZINE EDISYLATE 10 MG/2 ML VIAL ONE (06:15)
[2021-03-21] MEDS ORDERED: SODIUM CHLORIDE 0.9% 500ML 500 ML IV ONE (06:16)
== END 2021-03-21 07:12 | disposition home or self-care (01) ==
LOC: EDH 04:42
DX: S92.512A Displaced fracture of proximal phalanx of left lesser toe(s), initial encounter for closed fracture (principal); S83.512A Sprain of anterior cruciate ligament of left knee, initial encounter; S80.02XA Contusion of left knee, initial encounter; I10 Essential (primary) hypertension; E11.9 Type 2 diabetes mellitus without complications; Z88.6 Allergy status to analgesic agent; Z88.1 Allergy status to other antibiotic agents; Z86.16 Personal history of COVID-19; Z90.710 Acquired absence of both cervix and uterus; Z90.49 Acquired absence of other specified parts of digestive tract; Z98.890 Other specified postprocedural states; W01.190A Fall on same level from slipping, tripping and stumbling with subsequent striking against furniture, initial encounter; Y93.89 Activity, other specified; Y92.89 Other specified places as the place of occurrence of the external cause; Y99.8 Other external cause status
CPT/HCPCS: 73562; 73660; 96374; 96375; 99284; J0780; J1200; J7040

== ENCOUNTER 2022-06-27 20:03 | Emergency (ER) | payer OTHER ==
[~2022-06-27] VITALS: Ht 170.2 cm; Wt 177.8 kg
[~2022-06-27 20:03] MED LIST changes: +CARAL PO; +DICY20TA2 PO; -DOXY100C2 PO; +DOXY100C5 PO; +FAMO-136 PO; +METH4TAB3 PO; -OMEP40CA13 PO; +OMEP40CA21 PO; +ONDA4TAB10 PO; +ONDA4TAB4 PO; +PANT40TA55 PO; +POTA-183 PO; -POTA10TA11 PO; +SULF1TAB42 PO
[2022-06-27 20:45] LABS: APPEARANCE,URINE SL CLOUDY (CLEAR); BILIRUBIN,URINE NEGATIVE (NEGATIVE); COLOR,URINE YELLOW (YELLOW); GLUCOSE, URINE (UA) NEGATIVE (NEGATIVE); KETONES,URINE NEGATIVE (NEGATIVE); LEUKOCYTE ESTERASE ,URINE NEGATIVE (NEGATIVE); NITRATE,URINE NEGATIVE (NEGATIVE); OCCULT BLOOD,URINE NEGATIVE (NEGATIVE); PROTEIN,URINE NEGATIVE (NEGATIVE); UROBILINOGEN,URINE 0.2 mg/dL (0.2-1.0)
[2022-06-27 20:59] LABS: BASOPHILS % (AUTO) 0.7 % (0.0-5.0); EOSINOPHILS % (AUTO) 1.4 % (0.0-8.0); HEMATOCRIT 32.2 % (36-48); LYMPHOCYTES % (AUTO) 27.3 % (21.0-51.0); MEAN CORPUSCULAR HEMOGLOBIN 22.4 pg (27.0-33.0); MEAN CORPUSCULAR HGB CONC 30.1 g/dL (32.0-36.0); MEAN CORPUSCULAR VOLUME 74.4 fL (79-99); MONOCYTES % (AUTO) 7.7 % (3.0-13.0); NEUTROPHILS % (AUTO) 62.7 % (40.0-77.0); PLATELET COUNT (AUTO) 144 K/uL (130-400); RED BLOOD CELL COUNT(AUTO) 4.33 MIL/uL (4.00-5.50); RED CELL DISTRIBUTION WIDTH 17.6 % (11.0-15.5); WHITE BLOOD COUNT (AUTO) 4.4 K/uL (4.8-10.8)
[2022-06-27] MEDS ORDERED: HYDROCODONE/ACETAMINOPHEN 5/325 MG TAB PO ONE ×2 (21:00→22:30)
[2022-06-27 21:15] LABS: CREATININE 0.9 mg/dL (0.5-1.5); POTASSIUM 3.6 mmol/L (3.5-5.1)
[2022-06-27 21:19] LABS: ALBUMIN 3.4 g/dL (3.5-5.0); TOTAL PROTEIN, SERUM 7.6 g/dL (6.0-8.3)
[2022-06-27] MEDS ORDERED: DICY10 PO (22:20)
[2022-06-27 22:38] VITALS: BP 135/82
== END 2022-06-27 22:50 | disposition home or self-care (01) ==
LOC: EDH 20:03
DX: R10.32 Left lower quadrant pain (principal); F43.21 Adjustment disorder with depressed mood; I10 Essential (primary) hypertension; Z79.52 Long term (current) use of systemic steroids; Z79.899 Other long term (current) drug therapy; Z88.1 Allergy status to other antibiotic agents; Z88.5 Allergy status to narcotic agent; Z88.6 Allergy status to analgesic agent; Z90.49 Acquired absence of other specified parts of digestive tract
CPT/HCPCS: 36415; 80053; 81003; 83690; 85025

== ENCOUNTER 2022-11-02 19:08 | Emergency (ER) | payer OTHER ==
[~2022-11-02] VITALS: Ht 170.2 cm; Wt 175.1 kg
[~2022-11-02 19:08] MED LIST changes: +DICY10 PO
[2022-11-02] MEDS ORDERED: LISINOPRIL 40 MG TABLET PO SCH (20:30)
[2022-11-02] MEDS ORDERED: 0.9%NACL 1000ML 1,000 ML IV ONE (20:30)
[2022-11-02] MEDS ORDERED: ONDANSETRON 4MG INJ IVP ONE (20:30)
[2022-11-02 20:35] LABS: APPEARANCE,URINE CLOUDY (CLEAR); BASOPHILS % (AUTO) 0.5 % (0.0-5.0); BILIRUBIN,URINE NEGATIVE (NEGATIVE); COLOR,URINE LIGHT-YELLOW (YELLOW); EOSINOPHILS % (AUTO) 0.8 % (0.0-8.0); GLUCOSE, URINE (UA) NEGATIVE (NEGATIVE); HEMATOCRIT 36.6 % (36-48); KETONES,URINE NEGATIVE (NEGATIVE); LEUKOCYTE ESTERASE ,URINE NEGATIVE Leu/uL (NEGATIVE); LYMPHOCYTES % (AUTO) 35.2 % (21.0-51.0); MEAN CORPUSCULAR HEMOGLOBIN 22.3 pg (27.0-33.0); MEAN CORPUSCULAR HGB CONC 29.5 g/dL (32.0-36.0); MEAN CORPUSCULAR VOLUME 75.6 fL (79-99); MONOCYTES % (AUTO) 7.8 % (3.0-13.0); NEUTROPHILS % (AUTO) 55.7 % (40.0-77.0); NITRATE,URINE NEGATIVE (NEGATIVE); OCCULT BLOOD,URINE NEGATIVE (NEGATIVE); PH,URINE 5.5 (5.0-8.0); PLATELET COUNT (AUTO) 161 K/uL (130-400); PROTEIN,URINE NEGATIVE (NEGATIVE); RED BLOOD CELL COUNT(AUTO) 4.84 MIL/uL (4.00-5.50); RED CELL DISTRIBUTION WIDTH 18.3 % (11.0-15.5); UROBILINOGEN,URINE 0.2 mg/dL (0.2-1.0); WHITE BLOOD COUNT (AUTO) 3.7 K/uL (4.8-10.8)
[2022-11-02 20:37] LABS: BACTERIA,URINE MANY /HPF (None Seen); MUCUS,URINE RARE LPF (None Seen); RBC,URINE 0-1 /HPF (0-1); SQUAMOUS EPITHELIAL CELL,UR MOD /HPF (0-2)
[2022-11-02 20:46] LABS: POTASSIUM 3.2 mmol/L (3.5-5.1)
[2022-11-02 20:50] LABS: ALBUMIN 3.7 g/dL (3.5-5.0); TOTAL PROTEIN, SERUM 8.2 g/dL (6.0-8.3)
[2022-11-02] MEDS ORDERED: KCL 20 MEQ ERTAB PO ONE (21:00)
[2022-11-02] MEDS ORDERED: ACETAMINOPHEN 500 MG TABLET PO ONE (21:30)
[2022-11-02 22:15] VITALS: BP 146/77
[2022-11-02] MEDS ORDERED: MORPHINE 4 MG SYG IVP ONE (22:30)
== END 2022-11-02 22:54 | disposition home or self-care (01) ==
LOC: EDH 19:08
DX: R10.13 Epigastric pain (principal); R10.32 Left lower quadrant pain; I10 Essential (primary) hypertension; E87.6 Hypokalemia; Z79.52 Long term (current) use of systemic steroids; Z79.899 Other long term (current) drug therapy; Z88.1 Allergy status to other antibiotic agents; Z88.6 Allergy status to analgesic agent; Z90.49 Acquired absence of other specified parts of digestive tract
CPT/HCPCS: 99285; 74176; 96374; 96361; 96375; 82550; 84484; 80053; 83690; 85025; 81001; 36415; 93005; J7030; J2405; J2270

== ENCOUNTER 2023-03-16 13:45 | Emergency (ER) | payer BC, OTHER ==
[~2023-03-16] VITALS: Ht 170.2 cm; Wt 165.6 kg
[2023-03-16 15:13] LABS: APPEARANCE,URINE CLEAR (CLEAR); BILIRUBIN,URINE NEGATIVE (NEGATIVE); COLOR,URINE LIGHT-YELLOW (YELLOW); GLUCOSE, URINE (UA) NEGATIVE (NEGATIVE); KETONES,URINE NEGATIVE (NEGATIVE); LEUKOCYTE ESTERASE ,URINE NEGATIVE Leu/uL (NEGATIVE); NITRATE,URINE NEGATIVE (NEGATIVE); OCCULT BLOOD,URINE NEGATIVE (NEGATIVE); PROTEIN,URINE NEGATIVE (NEGATIVE); UROBILINOGEN,URINE 0.2 mg/dL (0.2-1.0)
[2023-03-16 15:18] LABS: BACTERIA,URINE MOD /HPF (None Seen); MUCUS,URINE RARE LPF (None Seen); SQUAMOUS EPITHELIAL CELL,UR MOD /HPF (0-2)
[2023-03-16 15:32] LABS: BASOPHILS % (AUTO) 0.6 % (0.0-5.0); EOSINOPHILS % (AUTO) 0.6 % (0.0-8.0); HEMATOCRIT 36.8 % (36-48); LYMPHOCYTES % (AUTO) 27.8 % (21.0-51.0); MEAN CORPUSCULAR HGB CONC 29.3 g/dL (32.0-36.0); MEAN CORPUSCULAR VOLUME 74.9 fL (79-99); MONOCYTES % (AUTO) 7.2 % (3.0-13.0); NEUTROPHILS % (AUTO) 63.5 % (40.0-77.0); PLATELET COUNT (AUTO) 162 K/uL (130-400); RED BLOOD CELL COUNT(AUTO) 4.91 MIL/uL (4.00-5.50); RED CELL DISTRIBUTION WIDTH 17.2 % (11.0-15.5); WHITE BLOOD COUNT (AUTO) 3.5 K/uL (4.8-10.8)
[2023-03-16 15:42] LABS: CREATININE 1.1 mg/dL (0.5-1.5); POTASSIUM 3.7 mmol/L (3.5-5.1)
[2023-03-16 15:46] LABS: ALBUMIN 3.6 g/dL (3.5-5.0)
[2023-03-16] MEDS ORDERED: DOCU100P MC (16:02)
[2023-03-16 16:38] VITALS: BP 155/80
== END 2023-03-16 16:42 | disposition home or self-care (01) ==
LOC: EDH 13:45
DX: R10.12 Left upper quadrant pain (principal); I10 Essential (primary) hypertension; Z90.49 Acquired absence of other specified parts of digestive tract; Z98.890 Other specified postprocedural states; Z90.710 Acquired absence of both cervix and uterus; Z79.52 Long term (current) use of systemic steroids; Z79.899 Other long term (current) drug therapy; Z88.1 Allergy status to other antibiotic agents; Z88.6 Allergy status to analgesic agent
CPT/HCPCS: 36415; 80053; 81001; 83690; 84478; 85025

== ENCOUNTER 2023-06-26 14:19 | Emergency (ER) | payer BC ==
[~2023-06-26] VITALS: Ht 170.2 cm; Wt 167.8 kg
[~2023-06-26 14:19] MED LIST changes: +DOCU100P MC
[2023-06-26 14:29] VITALS: BP 161/94; PULSE 90; RESP 16; O2SAT 96
== END 2023-06-26 15:48 | disposition left against medical advice (07) ==
LOC: EDH 14:19
DX: M54.50 Low back pain, unspecified (principal); Z53.21 Procedure and treatment not carried out due to patient leaving prior to being seen by health care provider

== ENCOUNTER 2023-07-20 13:02 | Emergency (ER) | payer BC ==
[~2023-07-20] VITALS: Ht 170.2 cm; Wt 167.8 kg
[2023-07-20 13:04] VITALS: BP 173/82; PULSE 91; RESP 20
[2023-07-20 13:50] LABS: APPEARANCE,URINE CLEAR (CLEAR); BILIRUBIN,URINE NEGATIVE (NEGATIVE); COLOR,URINE LIGHT-YELLOW (YELLOW); GLUCOSE, URINE (UA) NEGATIVE (NEGATIVE); KETONES,URINE NEGATIVE (NEGATIVE); LEUKOCYTE ESTERASE ,URINE NEGATIVE Leu/uL (NEGATIVE); NITRATE,URINE NEGATIVE (NEGATIVE); OCCULT BLOOD,URINE NEGATIVE (NEGATIVE); PH,URINE 6.5 (5.0-8.0); PROTEIN,URINE NEGATIVE (NEGATIVE); UROBILINOGEN,URINE 0.2 mg/dL (0.2-1.0)
[2023-07-20 14:03] LABS: ADD UA MICROSCOPIC NO
[2023-07-20] MEDS ORDERED: ONDANSETRON 4MG INJ IVP ONE (14:30)
[2023-07-20] MEDS ORDERED: 0.9%NACL 1000ML 1,000 ML IV ONE (14:30)
[2023-07-20 14:44] LABS: BASOPHILS # (AUTO) 0.02 K/uL (0.00-0.20); BASOPHILS % (AUTO) 0.5 % (0.0-5.0); EOSINOPHILS # (AUTO) 0.03 K/uL (0.00-0.70); EOSINOPHILS % (AUTO) 0.7 % (0.0-8.0); HEMATOCRIT 39.7 % (36-48); IMMATURE GRANULOCYTE ABSOLUTE 0.01 K/uL (0-1); LYMPHOCYTES # (AUTO) 1.2 K/uL (1.0-4.8); LYMPHOCYTES % (AUTO) 26.8 % (21.0-51.0); MEAN CORPUSCULAR HEMOGLOBIN 26.5 pg (27.0-33.0); MEAN CORPUSCULAR HGB CONC 31.5 g/dL (32.0-36.0); MEAN CORPUSCULAR VOLUME 84.3 fL (79-99); MONOCYTES # (AUTO) 0.4 K/uL (0.1-1.0); MONOCYTES % (AUTO) 7.9 % (3.0-13.0); NEUTROPHILS # (AUTO) 2.8 K/uL (1.8-7.7); NEUTROPHILS % (AUTO) 63.9 % (40.0-77.0); PLATELET COUNT (AUTO) 157 K/uL (130-400); RED BLOOD CELL COUNT(AUTO) 4.71 MIL/uL (4.00-5.50); RED CELL DISTRIBUTION WIDTH 16.4 % (11.0-15.5); WHITE BLOOD COUNT (AUTO) 4.4 K/uL (4.8-10.8)
[2023-07-20 14:58] LABS: ALBUMIN 3.4 g/dL (3.5-5.0); BILIRUBIN,TOTAL 0.4 mg/dL (0.2-1.0); POTASSIUM 3.7 mmol/L (3.5-5.1); TOTAL PROTEIN, SERUM 7.6 g/dL (6.0-8.3)
[2023-07-20] MEDS ORDERED: PREDNISONE 20 MG TABLET PO ONE (15:00)
[2023-07-20] MEDS ORDERED: TIZANIDINE HCL 2 MG TABLET PO SCH (15:00)
[2023-07-20] MEDS ORDERED: DIAZEPAM 5 MG TABLET PO ONE (15:00)
[2023-07-20] MEDS ORDERED: IBUP-2070 PO (16:11)
[2023-07-20] MEDS ORDERED: PRED20TA3 PO (16:11)
[2023-07-20] MEDS ORDERED: METH-811 PO (16:11)
[2023-07-20] MEDS ORDERED: ONDA4TAB10 PO (16:11)
== END 2023-07-20 16:35 | disposition home or self-care (01) ==
LOC: EDH 13:02
DX: R11.2 Nausea with vomiting, unspecified (principal); M54.50 Low back pain, unspecified; I10 Essential (primary) hypertension; Z79.52 Long term (current) use of systemic steroids; Z79.899 Other long term (current) drug therapy; Z88.1 Allergy status to other antibiotic agents; Z88.6 Allergy status to analgesic agent; Z90.49 Acquired absence of other specified parts of digestive tract
CPT/HCPCS: 99284; 96374; 96361; 80053; 83690; 85025; 81003; 36415; J7030; J2405